=== PATIENT | female | born 1975 | race Caucasian/White ===

== ENCOUNTER → 2020-05-14 12:16 | Outpatient (CLI) | payer OTHER, SELFPAY ==
[2020-05-14 14:18] LABS: Alanine Aminotransferase 54 IU/L (<35); Albumin 4.3 g/dL (3.5-5.0); Albumin Globulin Ratio 1.3 (1.0-2.8); Alkaline Phosphatase 109 U/L (38-126); Aspartate Aminotransferase 47 IU/L (14-36); BUN Creatinine Ratio 7.8 (6-22); Bilirubin Total 0.4 mg/dL (0.2-1.3); Blood Urea Nitrogen 4 mg/dL (7-17); Carbon Dioxide 30 mmol/L (22-32); Chloride 95 mmol/L (98-107); Estimated Glomerular Filt Rate > 60.0 mL/min (>60); Globulin 3.2 g/dL (1.7-4.1); Glucose 166 mg/dL (70-100); HEMOLYSIS < 15 (0-50); Potassium 3.5 mmol/L (3.4-5.1); Sodium 133 mmol/L (137-145); Total Protein 7.5 g/dL (6.3-8.2)
[2020-05-14 14:23] LABS: Hemoglobin A1C% w Est Avg Glu 6.8 % (4.0-6.0)
[2020-05-14 15:01] LABS: TSH w/ Reflex to FT4 2.02 uIU/mL (0.47-4.68)
== END ==
PROVIDERS: Referring Provider Internal Medicine; Visit Provider Internal Medicine
DX: E10.9 Type 1 diabetes mellitus without complications (principal); E06.3 Autoimmune thyroiditis
CPT/HCPCS: 36415; 80053; 83036; 84443

== ENCOUNTER → 2020-10-14 12:41 | Outpatient (CLI) | payer OTHER, SELFPAY ==
[2020-10-14 13:06] LABS: Hemoglobin A1C% w Est Avg Glu 6.6 % (4.0-6.0)
== END ==
PROVIDERS: Referring Provider Internal Medicine; Visit Provider Internal Medicine
DX: E10.9 Type 1 diabetes mellitus without complications (principal)
CPT/HCPCS: 36415; 83036

== ENCOUNTER → 2021-01-28 13:42 | Outpatient (CLI) | payer OTHER, SELFPAY ==
[2021-01-28 15:41] LABS: Alanine Aminotransferase 28 IU/L (<35); Albumin 3.9 g/dL (3.5-5.0); Albumin Globulin Ratio 1.3 (1.0-2.8); Alkaline Phosphatase 93 U/L (38-126); Aspartate Aminotransferase 35 IU/L (14-36); BUN Creatinine Ratio 8.3 (6-22); Bilirubin Total 0.4 mg/dL (0.2-1.3); Blood Urea Nitrogen 6 mg/dL (7-17); Calcium 8.7 mg/dL (8.4-10.2); Carbon Dioxide 24 mmol/L (22-32); Chloride 94 mmol/L (98-107); Cholesterol 164 mg/dL (140-199); Estimated Glomerular Filt Rate > 60.0 mL/min (>60); Glucose 223 mg/dL (70-100); HDL Cholesterol 45 mg/dL (40-60); HEMOLYSIS < 15 (0-50); LDL Cholesterol Calculated 64 mg/dL (<100); Sodium 127 mmol/L (137-145); Total Protein 6.9 g/dL (6.3-8.2); Triglycerides 273 mg/dL (35-150)
[2021-01-28 15:46] LABS: Hemoglobin A1C% w Est Avg Glu 6.5 % (4.0-6.0)
[2021-01-28 16:35] LABS: Creatinine Urine Random 90.5 mg/dL
[2021-01-28 16:39] LABS: Microalbumin Urine Random < 0.6 mg/dL (0-1.6)
== END ==
PROVIDERS: Referring Provider Internal Medicine; Visit Provider Internal Medicine
DX: E10.9 Type 1 diabetes mellitus without complications (principal)
CPT/HCPCS: 36415; 80053; 80061; 82043; 82570; 83036

== ENCOUNTER → 2021-12-18 11:01 | Outpatient (CLI) | payer OTHER, SELFPAY ==
[2021-12-18 12:38] LABS: Cholesterol 169 mg/dL (140-199); HDL Cholesterol 53 mg/dL (40-60); LDL Cholesterol Calculated 89 mg/dL (<100); Triglycerides 133 mg/dL (35-150)
[2021-12-18 12:43] LABS: Hemoglobin A1C% w Est Avg Glu 6.8 % (4.0-6.0)
== END ==
PROVIDERS: PCP Student in an Organized Health Care Education/Training Program; Referring Provider Internal Medicine; Visit Provider Internal Medicine
DX: E10.9 Type 1 diabetes mellitus without complications (principal); E78.00 Pure hypercholesterolemia, unspecified
CPT/HCPCS: 36415; 80061; 83036

== ENCOUNTER → 2023-11-04 12:17 | Outpatient (CLI) | payer BC, OTHER, SELFPAY ==
--- NOTE | 2023-11-04 12:26 | DI.RAD.S_ITS ---
PROCEDURE: XR CHEST 2V INDICATIONS: ACUTE COUGH TECHNIQUE: 2 views of the chest were acquired. COMPARISON: None. FINDINGS: Surgical changes and devices: None. Lungs and pleura: Lungs are clear. No pleural effusions or pneumothorax. Mediastinum: Mediastinal contours are normal. Heart size is normal. Bones and chest wall: No suspicious bony abnormalities. Soft tissues appear unremarkable. IMPRESSION: No acute cardiopulmonary abnormality is seen. Dictated by: Dennise Mcgee M.D. on 11/04/2023 at 14:14 Approved by: Dennise Mcgee M.D. on 11/04/2023 at 14:15
== END ==
LOC: RAD 12:24
PROVIDERS: PCP Registered Nurse; Referring Provider Registered Nurse; Visit Provider Registered Nurse
DX: R05.1 Acute cough (principal)
CPT/HCPCS: 71046

== ENCOUNTER 2024-04-06 13:52 | Emergency (ER) | payer BC, OTHER, SELFPAY ==
[2024-04-06 14:05] VITALS: BP 115/77; PULSE 93; RESP 20; TEMP 36.7; O2SAT 97; BMI 27.8
--- NOTE | 2024-04-06 14:17 | ED.WOUNDLAC ---
HPI - Wound/Laceration <Ryanne House PA-C - Last Filed: 04/06/24 14:23> General Chief Complaint: Wound/Laceration Stated Complaint: Hand Laceration Time Seen by Provider: 04/06/24 14:04 Source: patient Mode of arrival: Ambulatory History of Present Illness HPI narrative: Patient is a pleasant 48-year-old female presents to the emergency room department with a small 1 cm avulsion laceration on the dorsal aspect of her right hand that she sustained while washing a knife at home. No other physical complaints. Last tetanus within the last 10 years. Thought she might need a couple of stitches so presented to the emergency room department for evaluation. Related Data Home Medications Medication Instructions Recorded Confirmed INSULIN GLARGINE 10ML (LANTUS) 25 units SQ Q DAY ##0 06/18/10 Insulin Human Regular (Humulin R / ##0 06/18/10 Novolin R) LISINOPRIL (Zestril / Prinivil) 10 mg PO Q DAY ##0 06/18/10 Review of Systems <Ryanne House PA-C - Last Filed: 04/06/24 14:23> Review of Systems Narrative: Negative except as above Integumentary/Breasts Comments: Small 1 cm avulsion laceration on the dorsal aspect of the right hand at the base of the 2nd phalanx. Patient History <Ryanne House PA-C - Last Filed: 04/06/24 14:23> Social History Smoking Status: Never smoker Smoking Status: Never smoker alcohol intake frequency: 0-2 drinks per day Alcohol type: wine Substance Use Type: does not use Exam <Ryanne House PA-C - Last Filed: 04/06/24 14:23> Initial Vital Signs Initial Vital Signs: Vital Signs Temperature 98.1 F 04/06/24 14:05 Pulse Rate 93 H 04/06/24 14:05 Respiratory Rate 20 04/06/24 14:05 Blood Pressure 115/77 04/06/24 14:05 Pulse Oximetry 97 04/06/24 14:05 Oxygen Delivery Method Room Air 04/06/24 14:05 Reviewed. Const Other: Alert oriented no acute distress. Eyes Other: Pupils are PERRLA, EOMs are intact patient wears glasses Skin Other: Patient has a 1 cm avulsion laceration, the skin still attached by a small portion. Currently not bleeding. Neuro Other: Cranial nerves are grossly intact. Extrem Other: Right upper extremity range of motion, strength, pulses, cap refill preserved in the right upper extremity. 1 cm avulsion laceration at the base of the 2nd phalanx of the right hand on the dorsal aspect. <DO Gregory Stratton Last Filed: 04/16/24 07:04> Initial Vital Signs Initial Vital Signs: Vital Signs Temperature 98.1 F 04/06/24 14:05 Pulse Rate 93 H 04/06/24 14:05 Respiratory Rate 20 04/06/24 14:05 Blood Pressure 115/77 04/06/24 14:05 Pulse Oximetry 97 04/06/24 14:05 Oxygen Delivery Method Room Air 04/06/24 14:05 Course <Ryanne House PA-C - Last Filed: 04/06/24 14:23> Vital Signs Vital signs: Vital Signs - 8 hr 04/06/24 14:05 Temperature 98.1 F Pulse Rate 93 H Respiratory Rate 20 Blood Pressure 115/77 Pulse Oximetry 97 Oxygen Delivery Method Room Air Reviewed <DO Gregory Stratton Last Filed: 04/16/24 07:04> Vital Signs Vital signs: Vital Signs - 8 hr 04/06/24 14:05 Temperature 98.1 F Pulse Rate 93 H Respiratory Rate 20 Blood Pressure 115/77 Pulse Oximetry 97 Oxygen Delivery Method Room Air MDM - Wound/Laceration <Ryanne House PA-C - Last Filed: 04/06/24 14:23> MDM Narrative Medical decision making narrative: 48 year female presents to the emergency department for concerns of possible need for stitches. Patient has a superficial 1 cm avulsion laceration to the dorsal aspect of the right hand at the base of the 2nd phalanx. Evaluation shows that the portion of skin is just barely hanging on. The patient does not want the skin removed. She would like to use it as a cover. The wound is currently not bleeding. She would already washed the wound prior to being seen here in the emergency department. Small piece of Xeroform gauze was placed over the wound, Telfa was applied over the Xeroform gauze. It is secured with Coban. Patient tolerated the dressing without any issues or problems Patient discharged. Currently at this time there is nothing to stitch shut. Patient advised that unfortunately the wound will continue to ooze and bleed slowly. Differential diagnosis avulsion laceration 1 cm, superficial. Discharge Plan Departure Patient Disposition: Home Clinical Impression: Avulsion of skin Activity Restrictions/Additional Instructions: Keep the area clean and dry, change the dressing daily. Unfortunately that little flap of skin that has not salvageable just going to own. Unfortunately with an avulsion like this is just going to kind of constantly bleed, due to the fact that the hand is very vascular. Apply the dressing as I have shown you. Make sure you lemon picker some Telfa, and some vet wrap. Prescriptions: No Action INSULIN GLARGINE 10ML (LANTUS) 25 units SQ Q DAY Qty: 0 Insulin Human Regular (Humulin R / Novolin R) Qty: 0 LISINOPRIL (Zestril / Prinivil) 10 mg PO Q DAY Qty: 0 Referrals: Talia Marley ARNP [Primary Care Provider] - Stand Alone Forms: Patient Portal/API ED Sign-out <Thelma Howard DO - Last Filed: 04/16/24 07:04> Cosign ED Attending [place] Attestation: I was immediately available in the department for consultation.
== END 2024-04-06 14:31 | disposition home or self-care (01) ==
PROVIDERS: Emergency Provider Physician Assistant; PCP Registered Nurse
DX: S61.411A Laceration without foreign body of right hand, initial encounter (principal); W26.0XXA Contact with knife, initial encounter
CPT/HCPCS: 99281

== ENCOUNTER 2025-06-12 20:11 | Inpatient (IN) | payer BC, OTHER, SELFPAY ==
[2025-06-12] VITALS (13 sets, daily range): BP systolic 121–172; BP diastolic 63–77; PULSE 102–125; RESP 14–22; TEMP 37.1; O2SAT 96–99; BMI 28.5
[2025-06-12] MEDS: ONDANSETRON 4 MG/2 ML INJ IV ×2 (20:44→23:03)
[2025-06-12] MEDS: SODIUM CHLORIDE 0.9% 1,000 ML 1000 ML IV (20:45)
[2025-06-12 20:54] LABS: Add Manual Diff / Slide Review NO; Hematocrit 45.2 % (36-46); Hemoglobin 15.0 g/dL (12.0-16.0); Lymphocytes Absolute Auto 600 /uL (1100-4500); Mean Corpuscular HGB Conc 33.2 % (30-36); Mean Corpuscular Hemoglobin 28.8 PG (26-34); Mean Corpuscular Volume 86.7 fL (80-100); Platelet Count 296 X10^3/uL (150-400)
--- NOTE | 2025-06-12 20:54 | ED_ITS ---
HPI - General Adult General Chief complaint: Diabetic Problem Stated complaint: diabetic problem Time Seen by Provider: 06/12/25 20:45 Source: patient Mode of arrival: Ambulatory History of Present Illness HPI narrative: This is a 49-year-old female type 1 diabetic who comes in with vomiting all day. Reports she had been vomiting about 8 hours. Her blood sugars have been high over 400 all day in spite of having her insulin pump on and running. She denies abdominal pain, no urinary symptoms no cough no chest pain. Related Data Home Medications ?Medication ?Instructions ?Recorded ?Confirmed INSULIN GLARGINE 10ML (LANTUS) 25 units SQ Q DAY ##0 1 08/19/09 Insulin Human Regular (Humulin R / ##0 06/18/10 Novolin R) LISINOPRIL (Zestril / Prinivil) 10 mg PO Q DAY ##0 07/28 Allergies Allergy/AdvReac Type Severity Reaction Status Date / Time gluten Allergy Severe Vomiting Verified 06/12/25 20:36 Sulfa (Sulfonamide Allergy Mild Swelling Verified 06/12/25 20:20 Antibiotics) of the Eye Egg Derived Allergy Diarrhea Verified 06/12/25 20:36 fish derived Allergy Hives Verified 06/12/25 20:36 peanut Allergy Anaphylaxis Verified 06/12/25 20:36 sesame seed Allergy Anaphylaxis Verified 06/12/25 20:36 shellfish derived Allergy Hives Verified 06/12/25 20:36 tree nut Allergy Anaphylaxis Verified 06/12/25 20:36 Patient History Smoking Status: Never smoker alcohol intake frequency: 0-2 drinks per day Alcohol type: wine Exam Narrative Exam Narrative: Alert, appears uncomfortable but not toxic tachycardia noted Oral mucosa is moist Neck is supple Lungs are clear Regular rhythm and rate no murmur rub or gallop she is tachycardic Abdomen normal bowel sounds soft mild right upper quadrant tenderness Moving all 4 extremities spontaneously and equally Initial Vital Signs Initial Vital Signs: Vital Signs Temperature 98.8 F 06/12/25 20:20 Pulse Rate 125 H 06/12/25 20:20 Respiratory Rate 18 06/12/25 20:20 Blood Pressure 142/77 H 06/12/25 20:20 Pulse Oximetry 98 06/12/25 20:20 Oxygen Delivery Method Room Air 06/12/25 20:20 Course Orders Ordered: ED Orders 06/12/25 20:30 EKG-12 Lead Stat VBG [Venous Blood Gas] STAT 06/12/25 20:45 Complete Blood Count AUTO DIFF Stat Comprehensive Metabolic Panel Stat Ketones (Beta-Hydroxybutyrate) Stat Lipase Stat 06/12/25 20:52 Venous Blood Gas Routine 06/12/25 20:57 US abdomen limited Stat 06/12/25 22:00 Urine Culture Stat Urine Microscopic Stat 06/12/25 22:50 Arterial Blood Gas ROUTINE 06/12/25 22:55 Consult to Dietitian, Adult Routine 06/12/25 22:56 Basic Metabolic Panel Q4H 06/13/25 05:00 Complete Blood Count AUTO DIFF DAILY Lactate (Lactic Acid) DAILY Magnesium DAILY Troponin I DAILY Acetaminophen (Acetaminophen 325 Mg Tablet) 650 mg PO Q6H PRN PRN Reason: Fever/Mild Pain (1-3) Diazepam (Diazepam 10 Mg/2 Ml Syringe) 2 mg IV Q4HR PRN PRN Reason: Anxiety Hydromorphone HCl (Hydromorphone Hcl 0.5 Mg/0.5 Ml Syringe) 0.5 mg IV Q2H PRN PRN Reason: Pain, Severe (7-10) INSULIN DRIP PREMIX (Myxredlin Drip Premix) 100 unit in 100 mls @ 9.525 mls/hr IV TITRATE REYNA Last Admin: 06/12/25 21:44 Dose: 0.1 unit/kg/hr, 9.525 mls/hr INSULIN DRIP PREMIX (Myxredlin Drip Premix) 100 unit in 100 mls @ 4.763 mls/hr IV TITRATE REYNA; Protocol Dextrose (D10w) 100 mls @ 999 mls/hr IV PRN PRN PRN Reason: Hypoglycemia Sodium Chloride (Normal Saline 0.9%) 1,000 mls @ 999 mls/hr IV BOLUS ONE Stop: 06/12/25 23:56 Dextrose/Sodium Chloride (Dextrose 5%-0.45% Ns) 1,000 mls @ 150 mls/hr IV CONT REYNA Metoclopramide HCl (Metoclopramide 10 Mg/2 Ml Inj) 5 mg IV Q6HR PRN PRN Reason: Nausea And Vomiting Morphine Sulfate (Morphine 2 Mg/Ml Inj) 2 mg IV Q2HR PRN PRN Reason: Pain, Moderate (4-6) Naloxone HCl (Naloxone 0.4 Mg/Ml Vial) 0.2 mg IV Q2MIN PRN PRN Reason: Opiate Reversal Ondansetron HCl (Ondansetron 4 Mg/2 Ml Inj) 4 mg IV NOW PRN PRN Reason: Nausea And Vomiting Last Admin: 06/12/25 20:44 Dose: 4 mg Documented By: LUCILLE Ondansetron HCl (Ondansetron 4 Mg Odt) 4 mg PO NOW PRN PRN Reason: Nausea And Vomiting Ondansetron HCl (Ondansetron 4 Mg/2 Ml Inj) 4 mg IV Q6HR PRN PRN Reason: Nausea And Vomiting Oxycodone HCl (Oxycodone Ir 5 Mg Tablet) 5 mg PO Q3H PRN PRN Reason: Pain, Moderate (4-6) Pantoprazole Sodium (Pantoprazole 40 Mg Vial) 40 mg IV DAILY REYNA Discontinued Medications Sodium Chloride (Normal Saline 0.9%) 1,000 mls @ 1,000 mls/hr IV BOLUS ONE Stop: 06/12/25 21:41 Last Admin: 06/12/25 20:45 Dose: 1,000 mls/hr Documented By: LUCILLE Sodium Chloride (Normal Saline 0.9%) 1,000 mls @ 1,000 mls/hr IV BOLUS ONE Stop: 06/12/25 22:46 Reevaluation(s) Reevaluation #1: Blood sugars are coming down, at 10:50 p.m. we will add D5W to the IV fluids and decrease insulin to 0.5 units/kilogram per hour Consultations Consultation #1: Case discussed with hospitalist, Dr. Ham who accepts the admission Vital Signs Vital signs: Vital Signs - 8 hr 06/12/25 20:20 06/12/25 21:02 06/12/25 21:29 Temperature 98.8 F Pulse Rate 125 H 115 H 109 H Respiratory Rate 18 16 Blood Pressure 142/77 H Pulse Oximetry 98 97 99 Oxygen Delivery Method Room Air 06/12/25 21:29 06/12/25 21:30 06/12/25 21:30 Temperature Pulse Rate 109 H Respiratory Rate 18 Blood Pressure 135/65 128/63 Pulse Oximetry 99 Oxygen Delivery Method 06/12/25 21:45 06/12/25 21:45 06/12/25 22:00 Temperature Pulse Rate 108 H 110 H Respiratory Rate 20 17 Blood Pressure 129/66 Pulse Oximetry 98 99 Oxygen Delivery Method 06/12/25 22:00 06/12/25 22:15 06/12/25 22:15 Temperature Pulse Rate 108 H Respiratory Rate 20 Blood Pressure 172/77 H 146/72 H Pulse Oximetry 99 Oxygen Delivery Method 06/12/25 22:30 06/12/25 22:30 Temperature Pulse Rate 106 H Respiratory Rate 17 Blood Pressure 132/68 Pulse Oximetry 98 Oxygen Delivery Method Medical Decision Making Lab Data Lab results narrative: Venous blood gas shows acidosis and a low bicarb consistent with an acute metabolic acidosis. On chemistries glucose is nearly 400 with a CO2 of 12 and a positive anion gap. Potassium was noted to be 4.5. Serum ketones are positive. Urine micro showed no evidence of infection.. 06/12/25 20:45 06/12/25 20:45 Labs: Lab Results 06/12/25 06/12/25 06/12/25 Range/Units 20:30 20:45 20:52 WBC 10.9 (4.5-11.0) X10^3/uL RBC 5.21 H (4.0-5.2) X10^6/uL Hgb 15.0 (12.0-16.0) g/dL Hct 45.2 (36-46) % MCV 86.7 (80-100) fL MCH 28.8 (26-34) PG MCHC 33.2 (30-36) % RDW 13.1 (11.6-14.8) % Plt Count 296 (150-400) X10^3/uL Neut % (Auto) 92.0 H (50-75) % Lymph % (Auto) 5.2 L (25-40) % Carroll % (Auto) 2.4 L (3-14) % Eos % (Auto) 0.0 L (2-4) % Baso % (Auto) 0.4 (0-2) % Neut # (Auto) 19756 H (9184-6005) /uL Lymph # (Auto) 600 L (7373-3113) /uL Carroll # (Auto) 300 (0-900) /uL Eos # (Auto) 0 (0-450) /uL Baso # (Auto) 0 (0-100) /uL VBG pH 7.28 L (7.33-7.43) VBG pCO2 32.6 L (45-50) mmHg VBG pO2 41 (35-45) mmHg VBG HCO3 15 L (24-28) mmol/L VBG Total CO2 15 L (24-29) mmol/L VBG O2 Saturation 70 (70-75) % VBG Base Excess -10.2 L (0-4) mmol/L Sodium 132 L (137-145) mmol/L Potassium 4.5 (3.4-5.1) mmol/L Chloride 95 L (98-107) mmol/L Carbon Dioxide 12 L (22-32) mmol/L BUN 16 (7-17) mg/dL Creatinine 0.85 (0.52-1.04) mg/dL Estimated GFR > 60 (>60) mL/min BUN/Creatinine Ratio 18.8 (6-22) Glucose 393 H (70-99) mg/dL POC Whole Bld Glucose 432 H (70-99) mg/dL Calcium 9.0 (8.4-10.2) mg/dL Total Bilirubin 1.1 (0.2-1.3) mg/dL AST 40 H (14-36) IU/L ALT 41 H (<35) IU/L Alkaline Phosphatase 105 (38-126) U/L Total Protein 8.0 (6.3-8.2) g/dL Albumin 4.9 (3.5-5.0) g/dL Globulin 3.1 (1.7-4.1) g/dL Albumin/Globulin Ratio 1.6 (1.0-2.8) Lipase 27 (23-300) U/L Urine RBC (0-5/HPF) Urine WBC (0-5/HPF) Ur Squamous Epith Cells (0-5/HPF) Urine Bacteria (None) Hyaline Casts (None) Ur Culture Indicated? Vol Urine Centrifuged Ketones 6.58 H (<0.27) mmol/L 06/12/25 06/12/25 06/12/25 Range/Units 21:43 22:00 22:37 WBC (4.5-11.0) X10^3/uL RBC (4.0-5.2) X10^6/uL Hgb (12.0-16.0) g/dL Hct (36-46) % MCV (80-100) fL MCH (26-34) PG MCHC (30-36) % RDW (11.6-14.8) % Plt Count (150-400) X10^3/uL Neut % (Auto) (50-75) % Lymph % (Auto) (25-40) % Carroll % (Auto) (3-14) % Eos % (Auto) (2-4) % Baso % (Auto) (0-2) % Neut # (Auto) (8331-6857) /uL Lymph # (Auto) (2245-3616) /uL Carroll # (Auto) (0-900) /uL Eos # (Auto) (0-450) /uL Baso # (Auto) (0-100) /uL VBG pH (7.33-7.43) VBG pCO2 (45-50) mmHg VBG pO2 (35-45) mmHg VBG HCO3 (24-28) mmol/L VBG Total CO2 (24-29) mmol/L VBG O2 Saturation (70-75) % VBG Base Excess (0-4) mmol/L Sodium (137-145) mmol/L Potassium (3.4-5.1) mmol/L Chloride (98-107) mmol/L Carbon Dioxide (22-32) mmol/L BUN (7-17) mg/dL Creatinine (0.52-1.04) mg/dL Estimated GFR (>60) mL/min BUN/Creatinine Ratio (6-22) Glucose (70-99) mg/dL POC Whole Bld Glucose 344 H 244 H D (70-99) mg/dL Calcium (8.4-10.2) mg/dL Total Bilirubin (0.2-1.3) mg/dL AST (14-36) IU/L ALT (<35) IU/L Alkaline Phosphatase (38-126) U/L Total Protein (6.3-8.2) g/dL Albumin (3.5-5.0) g/dL Globulin (1.7-4.1) g/dL Albumin/Globulin Ratio (1.0-2.8) Lipase (23-300) U/L Urine RBC None seen (0-5/HPF) Urine WBC None seen (0-5/HPF) Ur Squamous Epith Cells 5-10 /hpf H (0-5/HPF) Urine Bacteria Moderate (10-30) H (None) Hyaline Casts 0-1/lpf (None) Ur Culture Indicated? Cult not indicated Vol Urine Centrifuged 10ml (spun) Ketones (<0.27) mmol/L Point of Care Testing Glucose POC 432 Urine Dip Bedside Urine Glucose 1000 mg/dl Bedside Urine Bilirubin - Negative Bedside Urine Ketone +++ 80 Urine Specific [place] 1.025 Bedside Urine Occult Blood - Negative Bedside Urine pH 6.0 Bedside Urine Protein - Negative Bedside Urine Urobilinogen - Negative Bedside Urine Nitrite - Negative Bedside Urine Leukocytes - Negative Esterase Point of care testing: Point of Care Testing Glucose POC 432 Urine Dip Bedside Urine Glucose 1000 mg/dl Bedside Urine Bilirubin - Negative Bedside Urine Ketone +++ 80 Urine Specific [place] 1.025 Bedside Urine Occult Blood - Negative Bedside Urine pH 6.0 Bedside Urine Protein - Negative Bedside Urine Urobilinogen - Negative Bedside Urine Nitrite - Negative Bedside Urine Leukocytes - Negative Esterase Imaging Data US - abdomen: Radiologist's Impression: Initial report from fish technologist right upper quadrant ultrasound is negative ECG Data Attestation: I personally reviewed and interpreted this ECG as follows: (Normal sinus rhythm at 1:[address] segment changes) [facility] Narrative Medical decision making narrative: 49-year-old female type 1 diabetic presenting with high blood sugars and vomiting. Presentation is consistent with an labs are confirmatory for diabetic ketoacidosis. Considered possible precipitated causes including infection and cardiac ischemia these are not identified. The patient has a insulin pump on that she reports she has been functioning normally. She was started on insulin drip given IV fluids here with improvement in blood sugars, she will be admitted to the hospitalist service. Critical Care Time Critical Care Time Critical Care Time: Yes Total Critical Care Time: 40 Attestation: 49-year-old female with acute diabetic ketoacidosis. Required multiple reassessments, repeat labs and female with the IV insulin drip Discharge Plan Departure Patient Disposition: Admitted As Inpatient Clinical Impression: Diabetes mellitus with ketoacidosis Qualifiers: Diabetes mellitus type: type 1 Diabetes mellitus complication detail: without coma Qualified Code(s): E10.10 - Type 1 diabetes mellitus with ketoacidosis without coma Admit Date/Time: 06/12/25 22:50 Admit Provider: Mariano Ham
[2025-06-12 20:56] LABS: Base Excess VBG -10.2 mmol/L (0-4); HCO3 VBG 15 mmol/L (24-28); Oxygen Saturation VBG 70 % (70-75); PCO2 VBG 32.6 mmHg (45-50); PO2 VBG 41 mmHg (35-45); Total CO2 VBG 15 mmol/L (24-29); pH VBG 7.28 (7.33-7.43)
--- NOTE | 2025-06-12 20:57 | DI.US.S_ITS ---
PROCEDURE: US ABDOMEN LIMITED INDICATIONS: ruq abd tenderness TECHNIQUE: Real-time scanning was performed of the abdominal and retroperitoneal organs, with image documentation. COMPARISON: None. FINDINGS: Liver: Liver is normal in size and homogeneous in echotexture. Gallbladder: No gallstones. No wall thickening. No pericholecystic edema. Negative sonographic Baum's sign. Biliary ducts: Intrahepatic bile ducts are non-dilated. Extrahepatic bile duct caliber measures 1.2 mm. Normal is 6-7 mm or less in diameter, or 10 mm or less post-cholecystectomy. Pancreas: Visualized portions of the pancreas are sonographically normal. Miscellaneous: No free abdominal fluid. IMPRESSION: Unremarkable exam. Dictated by: Nikki Oviedo M.D. on 06/12/2025 at 23:18 Approved by: Nikki Oviedo M.D. on 06/12/2025 at 23:19
[2025-06-12 21:05] LABS: Alanine Aminotransferase 41 IU/L (<35); Albumin 4.9 g/dL (3.5-5.0); Albumin Globulin Ratio 1.6 (1.0-2.8); Alkaline Phosphatase 105 U/L (38-126); Blood Urea Nitrogen 16 mg/dL (7-17); Calcium 9.0 mg/dL (8.4-10.2); Carbon Dioxide 12 mmol/L (22-32); Chloride 95 mmol/L (98-107); Estimated Glomerular Filt Rate > 60 mL/min (>60); Globulin 3.1 g/dL (1.7-4.1); Glucose 393 mg/dL (70-99); HEMOLYSIS < 15 (0-50); Lipase 27 U/L (23-300); Potassium 4.5 mmol/L (3.4-5.1); Sodium 132 mmol/L (137-145); Total Protein 8.0 g/dL (6.3-8.2)
--- NOTE | 2025-06-12 21:05 | EKG_ITS ---
[address] [address] Test Date: 2025-06-12 Pat Name: Isadora Gordon Department: [facility] Room: Gender: Female Corporate Tax Preparer: IRAIDA : 1975 Requested By: Order Number: [id number] Reading MD: Michale Lopez Measurements Intervals Council Rate: 113 P: 44 VT: 140 QRS: -9 QRSD: 84 T: 29 QT: 326 QTc: 447 Interpretive Statements Sinus tachycardia Electronically Signed On 06-13-2025 14:10:03 PST by Michael Lopez
[2025-06-12 21:28] LABS: Ketones (Beta-Hydroxybutyrate) 6.58 mmol/L (<0.27)
[2025-06-12] MEDS: INSULIN DRIP PREMIX 100 UNIT/100 ML PLAST..BAG 9.525 UNIT IV (21:44)
--- NOTE | 2025-06-12 22:44 | PC.NURSE ---
Per verbal from Dr. Lucia, change insulin drip rate to 0.05Units/kg/hr and switch NS to D5 1/2NS @150mL/hr
[2025-06-12 22:49] LABS: Culture Indicated Urine Cult Not Indicated
[2025-06-12] MEDS: INSULIN DRIP PREMIX 100 UNIT/100 ML PLAST..BAG IV (22:59)
[2025-06-12] MEDS: DEXTROSE 5%-0.45% NS 1,000 ML 150 ML IV (23:01)
[2025-06-12 23:15] LABS: Blood Urea Nitrogen 15 mg/dL (7-17); Calcium 8.4 mg/dL (8.4-10.2); Carbon Dioxide 16 mmol/L (22-32); Chloride 99 mmol/L (98-107); Estimated Glomerular Filt Rate > 60 mL/min (>60); Glucose 228 mg/dL (70-99); HEMOLYSIS < 15 (0-50); Potassium 4.0 mmol/L (3.4-5.1); Sodium 132 mmol/L (137-145)
[2025-06-13] VITALS (8 sets, daily range): BP systolic 118–147; BP diastolic 58–75; PULSE 84–100; RESP 13–27; O2SAT 96–98
--- NOTE | 2025-06-13 00:50 | PM.HP.1 ---
History of Present Illness History of Present Illness Date Patient Seen: 06/13/25 Time Patient Seen: 00:50 Chief complaint: diabetic problem Narrative: The pt is a IDDM type I who normally has a Medtronic Insulin pump who started having nausea for the past 48 hours but started having vomiting around noon today multiple times. She was unable to keep any food or liquids down so she came t our ER tonight. The pt's primary chief mate is Dr. Horne at [facility] and had an appointment last week for a routine check. Thept does not know why she has went into DKA, but states her son also has been having N/V for the past several days- thus she thinks she has a viral GI bug. The pt denies any CP, AYALA, fevers, chills, but does c/o leg cramps. [facility] Social History household members: spouse and children Smoking Status: Former smoker alcohol intake: current Meds Home Medications and Allergies Home Medications ?Medication ?Instructions ?Recorded ?Confirmed ?Type INSULIN GLARGINE 10ML (LANTUS) 25 units SQ Q DAY ##0 06/18/10 History Insulin Human Regular (Humulin R / ##0 06/18/10 History Novolin R) LISINOPRIL (Zestril / Prinivil) 10 mg PO Q DAY ##0 06/18/10 History Allergies Allergy/AdvReac Type Severity Reaction Status Date / Time gluten Allergy Severe Vomiting Verified 06/12/25 20:36 Sulfa (Sulfonamide Allergy Mild Swelling Verified 06/12/25 20:20 Antibiotics) of the Eye Egg Derived Allergy Diarrhea Verified 06/12/25 20:36 fish derived Allergy Hives Verified 06/12/25 20:36 peanut Allergy Anaphylaxis Verified 06/12/25 20:36 sesame seed Allergy Anaphylaxis Verified 06/12/25 20:36 shellfish derived Allergy Hives Verified 06/12/25 20:36 tree nut Allergy Anaphylaxis Verified 06/12/25 20:36 Exam Vital Signs (past 8 hours): - 06/12/25 20:20 06/12/25 21:02 06/12/25 21:29 Temperature 98.8 F Pulse Rate 125 H 115 H 109 H Respiratory Rate 18 16 Blood Pressure 142/77 H Pulse Oximetry 98 97 99 Oxygen Delivery Method Room Air 06/12/25 21:29 06/12/25 21:30 06/12/25 21:30 Temperature Pulse Rate 109 H Respiratory Rate 18 Blood Pressure 135/65 128/63 Pulse Oximetry 99 Oxygen Delivery Method 06/12/25 21:45 06/12/25 21:45 06/12/25 22:00 Temperature Pulse Rate 108 H 110 H Respiratory Rate 20 17 Blood Pressure 129/66 Pulse Oximetry 98 99 Oxygen Delivery Method 06/12/25 22:00 06/12/25 22:15 06/12/25 22:15 Temperature Pulse Rate 108 H Respiratory Rate 20 Blood Pressure 172/77 H 146/72 H Pulse Oximetry 99 Oxygen Delivery Method 06/12/25 22:30 06/12/25 22:30 06/12/25 22:45 Temperature Pulse Rate 106 H Respiratory Rate 17 Blood Pressure 132/68 136/67 Pulse Oximetry 98 Oxygen Delivery Method 06/12/25 22:45 06/12/25 23:00 06/12/25 23:00 Temperature Pulse Rate 105 H 106 H Respiratory Rate 14 20 Blood Pressure 130/69 Pulse Oximetry 97 97 Oxygen Delivery Method 06/12/25 23:15 06/12/25 23:15 06/12/25 23:25 Temperature Pulse Rate 102 H Respiratory Rate 14 Blood Pressure 121/68 127/70 Pulse Oximetry 96 Oxygen Delivery Method 06/12/25 23:25 06/12/25 23:30 Temperature Pulse Rate 103 H 108 H Respiratory Rate 22 Blood Pressure Pulse Oximetry 98 97 Oxygen Delivery Method Oxygen Delivery Method Room Air Const General: cooperative, healthy appearing and comfortable Other: Due to technical issues, I was not able to examine the pt today but was able to visualize the pt and talk to her. Objective Labs 06/12/25 20:45 06/12/25 22:56 Labs: Laboratory Results - last 24 hr 06/12/25 06/12/25 06/12/25 20:30 20:45 20:52 WBC 10.9 RBC 5.21 H Hgb 15.0 Hct 45.2 MCV 86.7 MCH 28.8 MCHC 33.2 RDW 13.1 Plt Count 296 Neut % (Auto) 92.0 H Lymph % (Auto) 5.2 L [place] % (Auto) 2.4 L Eos % (Auto) 0.0 L Baso % (Auto) 0.4 Neut # (Auto) 28960 H Lymph # (Auto) 600 L [place] # (Auto) 300 Eos # (Auto) 0 Baso # (Auto) 0 VBG pH 7.28 L VBG pCO2 32.6 L VBG pO2 41 VBG HCO3 15 L VBG Total CO2 15 L VBG O2 Saturation 70 VBG Base Excess -10.2 L Sodium 132 L Potassium 4.5 Chloride 95 L Carbon Dioxide 12 L BUN 16 Creatinine 0.85 Estimated GFR > 60 BUN/Creatinine Ratio 18.8 Glucose 393 H POC Whole Bld Glucose 432 H Calcium 9.0 Total Bilirubin 1.1 AST 40 H ALT 41 H Alkaline Phosphatase 105 Total Protein 8.0 Albumin 4.9 Globulin 3.1 Albumin/Globulin Ratio 1.6 Lipase 27 Urine RBC Urine WBC Ur Squamous Epith Cells Urine Bacteria Hyaline Casts Ur Culture Indicated? Vol Urine Centrifuged Ketones 6.58 H 06/12/25 06/12/25 06/12/25 21:43 22:00 22:37 WBC RBC Hgb Hct MCV MCH MCHC RDW Plt Count Neut % (Auto) Lymph % (Auto) [place] % (Auto) Eos % (Auto) Baso % (Auto) Neut # (Auto) Lymph # (Auto) [place] # (Auto) Eos # (Auto) Baso # (Auto) VBG pH VBG pCO2 VBG pO2 VBG HCO3 VBG Total CO2 VBG O2 Saturation VBG Base Excess Sodium Potassium Chloride Carbon Dioxide BUN Creatinine Estimated GFR BUN/Creatinine Ratio Glucose POC Whole Bld Glucose 344 H 244 H D Calcium Total Bilirubin AST ALT Alkaline Phosphatase Total Protein Albumin Globulin Albumin/Globulin Ratio Lipase Urine RBC None seen Urine WBC None seen Ur Squamous Epith Cells 5-10 /hpf H Urine Bacteria Moderate (10-30) H Hyaline Casts 0-1/lpf Ur Culture Indicated? Cult not indicated Vol Urine Centrifuged 10ml (spun) Ketones 06/12/25 06/12/25 22:56 23:59 WBC RBC Hgb Hct MCV MCH MCHC RDW Plt Count Neut % (Auto) Lymph % (Auto) [place] % (Auto) Eos % (Auto) Baso % (Auto) Neut # (Auto) Lymph # (Auto) [place] # (Auto) Eos # (Auto) Baso # (Auto) VBG pH VBG pCO2 VBG pO2 VBG HCO3 VBG Total CO2 VBG O2 Saturation VBG Base Excess Sodium 132 L Potassium 4.0 Chloride 99 Carbon Dioxide 16 L BUN 15 Creatinine 0.72 Estimated GFR > 60 BUN/Creatinine Ratio 20.8 Glucose 228 H D POC Whole Bld Glucose 208 H Calcium 8.4 Total Bilirubin AST ALT Alkaline Phosphatase Total Protein Albumin Globulin Albumin/Globulin Ratio Lipase Urine RBC Urine WBC Ur Squamous Epith Cells Urine Bacteria Hyaline Casts Ur Culture Indicated? Vol Urine Centrifuged Ketones Assessment & Plan Assessment & Plan narrative: I have discussed the pt's presenting symtoms, labs and US imaging with the ER provider and agree with the decision for admission. I have personally reviewed the labs showing the glucose of 394, large ketones, bicarb critically low at 12, She was given 2 liter of NS in the ER, and we will continue on aggressive IV fluid rehydration, checking accuchecks Q1 Hr, electrolytes Q4 hr, rechecking ABG, The pt is cricitally ill and requires ICU monitoring on telemetry and will require more than 2 MN stay, I, Dr. Mariano Ham in [place] has seen and examined Isadora Shamajeff Campos in [place] using audio/ video technology of telemedicine withe the pt's consent nd nursing assistance. Time-Based Coding :: [TOTAL MINUTES] spent with patient and on the chart (including review of chart, obtaining history, exam, reviewing outside data, placing orders, documenting exam and treatment plan, and counseling patient) on [DATE]. Quality VTE Deep Vein Thrombosis/Pulmonary Embolism Present on Admission: No
[2025-06-13] MEDS: DEXTROSE 5%-0.45NS W/KCL 20MEQ 1,000 ML 150 MEQ IV (00:54)
[2025-06-13 02:23] LABS: MRSA (Nasal) PCR NOT DETECTED (Not Detect)
[2025-06-13 03:26] LABS: Base Excess VBG -1.3 mmol/L (0-4); HCO3 VBG 23 mmol/L (24-28); Oxygen Saturation VBG 97 % (70-75); PCO2 VBG 34.2 mmHg (45-50); PO2 VBG 92 mmHg (35-45); Total CO2 VBG 21 mmol/L (24-29); pH VBG 7.43 (7.33-7.43)
[2025-06-13 03:45] LABS: Add Manual Diff / Slide Review NO; Hematocrit 37.2 % (36-46); Hemoglobin 12.8 g/dL (12.0-16.0); Lymphocytes Absolute Auto 1300 /uL (1100-4500); Mean Corpuscular HGB Conc 34.4 % (30-36); Mean Corpuscular Hemoglobin 29.3 PG (26-34); Mean Corpuscular Volume 85.0 fL (80-100); Platelet Count 256 X10^3/uL (150-400)
[2025-06-13 04:02] LABS: Blood Urea Nitrogen 13 mg/dL (7-17); Calcium 8.2 mg/dL (8.4-10.2); Carbon Dioxide 20 mmol/L (22-32); Chloride 102 mmol/L (98-107); Estimated Glomerular Filt Rate > 60 mL/min (>60); Glucose 137 mg/dL (70-99); HEMOLYSIS < 15 (0-50); Magnesium 1.8 mg/dL (1.6-2.3); Potassium 4.0 mmol/L (3.4-5.1); Sodium 131 mmol/L (137-145)
[2025-06-13 04:04] LABS: Lactate (Lactic Acid) 1.4 mmol/L (0.7-2.1)
[2025-06-13 04:14] LABS: Troponin I 0.016 ng/mL (0.01-0.034)
--- NOTE | 2025-06-13 06:39 | PC.NURSE ---
propulsion systems engineer RN note pt arrived from ER via stretcher, ambulated to bed with standby assist, denied pain, c/o mild nausea, states she feels like she has a touch of a virus, pt's insulin pump off and at bedside, new site on R abd intact and capped, SR 80s, VSS, afebrile, IV fluids and insulin gtt per protocol, meds and labs as ordered, call hernandez within reach, care ongoing
[2025-06-13 07:50] LABS: Blood Urea Nitrogen 11 mg/dL (7-17); Calcium 8.1 mg/dL (8.4-10.2); Carbon Dioxide 20 mmol/L (22-32); Chloride 102 mmol/L (98-107); Estimated Glomerular Filt Rate > 60 mL/min (>60); Glucose 145 mg/dL (70-99); HEMOLYSIS < 15 (0-50); Potassium 4.0 mmol/L (3.4-5.1); Sodium 129 mmol/L (137-145)
--- NOTE | 2025-06-13 08:11 | P.HP_ITS ---
History of Present Illness History of Present Illness Date Patient Seen: 06/13/25 Chief complaint: diabetic problem Narrative: From night doctor: The pt is a IDDM type I who normally has a Medtronic Insulin pump who started having nausea for the past 48 hours but started having vomiting around noon today multiple times. She was unable to keep any food or liquids down so she came t our ER tonight. The pt's primary contracting officer is Dr. Horne at [facility] and had an appointment last week for a routine check. Thept does not know why she has went into DKA, but states her son also has been having N/V for the past several days- thus she thinks she has a viral GI bug. The pt denies any CP, AYALA, fevers, chills, but does c/o leg cramps. S: She was feeling much better, her nausea has essentially resolved and she was able to eat. Her sugars have improved and gap did close. She has not on DKA previously. There was no evidence pump function. She did have nausea vomiting and diarrhea blood with the as well as on infection or food poisoning. ROS: All else reviewed and otherwise unremarkable except as noted in the history and physical. O: VSS NAD, alert and oriented, fluent speech, calm. Normocephalic skull, EOMI, anicteric sclera, symmetric pupils. Oropharynx unremarkable, no droop. Neck supple, midline trachea, no adenopathy. Lungs clear, normal rate and effort. Heart regular, no murmur gallop or rub. Abdomen is soft, non distended and non tender. Extremities are free of edema. Skin is free of rash or lesions. Joints are not swollen or deformed. Judgment appears to be normal. IMAGING: ABD US: Unremarkable exam. A/P: 1. DKA, improved. 2. DM 1, active. PLAN: -transitioned back to pump -stop IV fluids [facility] Social History household members: spouse and children Smoking Status: Former smoker alcohol intake: current Meds Home Medications and Allergies Home Medications ?Medication ?Instructions ?Recorded ?Confirmed ?Type INSULIN GLARGINE 10ML (LANTUS) 25 units SQ Q DAY ##0 1 08/19/09 06/13/25 History Insulin Human Regular (Humulin R / See Rx Instructions .Route 06/18/10 06/13/25 History Novolin R) .COMPLEX ##0 LISINOPRIL (Zestril / Prinivil) 10 mg PO Q DAY ##0 07/2806/13/25 History ondansetron 4 mg disintegrating 4 mg PO Q8H PRN nausea and 06/13/25 Rx tablet vomiting 4 days #14 tabs Allergies Allergy/AdvReac Type Severity Reaction Status Date / Time gluten Allergy Severe Vomiting Verified 06/12/25 20:36 Sulfa (Sulfonamide Allergy Mild Swelling Verified 06/12/25 20:20 Antibiotics) of the Eye Egg Derived Allergy Diarrhea Verified 06/12/25 20:36 fish derived Allergy Hives Verified 06/12/25 20:36 peanut Allergy Anaphylaxis Verified 06/12/25 20:36 sesame seed Allergy Anaphylaxis Verified 06/12/25 20:36 shellfish derived Allergy Hives Verified 06/12/25 20:36 tree nut Allergy Anaphylaxis Verified 06/12/25 20:36 Exam Vital Signs (past 8 hours): - 06/13/25 01:00 06/13/25 02:00 06/13/25 03:00 Pulse Rate 97 H 94 H 88 Respiratory Rate 13 14 18 Blood Pressure 134/66 122/60 118/64 Pulse Oximetry 96 96 98 Oxygen Flow Rate 0 0 0 06/13/25 04:00 06/13/25 05:00 06/13/25 06:00 Pulse Rate 86 89 85 Respiratory Rate 17 18 27 H Blood Pressure 133/62 126/63 120/58 L Pulse Oximetry 97 96 98 Oxygen Flow Rate 0 0 0 Oxygen Delivery Method Room Air Oxygen Flow Rate 0 Objective Labs 06/13/25 03:10 06/13/25 07:25 Labs: Laboratory Results - last 24 hr 06/12/25 06/12/25 06/12/25 20:30 20:45 20:52 WBC 10.9 RBC 5.21 H Hgb 15.0 Hct 45.2 MCV 86.7 MCH 28.8 MCHC 33.2 RDW 13.1 Plt Count 296 Neut % (Auto) 92.0 H Lymph % (Auto) 5.2 L [place] % (Auto) 2.4 L Eos % (Auto) 0.0 L Baso % (Auto) 0.4 Neut # (Auto) 28352 H Lymph # (Auto) 600 L [place] # (Auto) 300 Eos # (Auto) 0 Baso # (Auto) 0 VBG pH 7.28 L VBG pCO2 32.6 L VBG pO2 41 VBG HCO3 15 L VBG Total CO2 15 L VBG O2 Saturation 70 VBG Base Excess -10.2 L Sodium 132 L Potassium 4.5 Chloride 95 L Carbon Dioxide 12 L BUN 16 Creatinine 0.85 Estimated GFR > 60 BUN/Creatinine Ratio 18.8 Glucose 393 H POC Whole Bld Glucose 432 H Lactate Calcium 9.0 Magnesium Total Bilirubin 1.1 AST 40 H ALT 41 H Alkaline Phosphatase 105 Troponin I Total Protein 8.0 Albumin 4.9 Globulin 3.1 Albumin/Globulin Ratio 1.6 Lipase 27 Urine RBC Urine WBC Ur Squamous Epith Cells Urine Bacteria Hyaline Casts Ur Culture Indicated? Vol Urine Centrifuged Nasal Screen MRSA (PCR) Ketones 6.58 H 06/12/25 06/12/25 06/12/25 21:43 22:00 22:37 WBC RBC Hgb Hct MCV MCH MCHC RDW Plt Count Neut % (Auto) Lymph % (Auto) [place] % (Auto) Eos % (Auto) Baso % (Auto) Neut # (Auto) Lymph # (Auto) [place] # (Auto) Eos # (Auto) Baso # (Auto) VBG pH VBG pCO2 VBG pO2 VBG HCO3 VBG Total CO2 VBG O2 Saturation VBG Base Excess Sodium Potassium Chloride Carbon Dioxide BUN Creatinine Estimated GFR BUN/Creatinine Ratio Glucose POC Whole Bld Glucose 344 H 244 H D Lactate Calcium Magnesium Total Bilirubin AST ALT Alkaline Phosphatase Troponin I Total Protein Albumin Globulin Albumin/Globulin Ratio Lipase Urine RBC None seen Urine WBC None seen Ur Squamous Epith Cells 5-10 /hpf H Urine Bacteria Moderate (10-30) H Hyaline Casts 0-1/lpf Ur Culture Indicated? Cult not indicated Vol Urine Centrifuged 10ml (spun) Nasal Screen MRSA (PCR) Ketones 06/12/25 06/12/25 06/12/25 22:56 23:40 23:59 WBC RBC Hgb Hct MCV MCH MCHC RDW Plt Count Neut % (Auto) Lymph % (Auto) [place] % (Auto) Eos % (Auto) Baso % (Auto) Neut # (Auto) Lymph # (Auto) [place] # (Auto) Eos # (Auto) Baso # (Auto) VBG pH VBG pCO2 VBG pO2 VBG HCO3 VBG Total CO2 VBG O2 Saturation VBG Base Excess Sodium 132 L Potassium 4.0 Chloride 99 Carbon Dioxide 16 L BUN 15 Creatinine 0.72 Estimated GFR > 60 BUN/Creatinine Ratio 20.8 Glucose 228 H D POC Whole Bld Glucose 208 H Lactate Calcium 8.4 Magnesium Total Bilirubin AST ALT Alkaline Phosphatase Troponin I Total Protein Albumin Globulin Albumin/Globulin Ratio Lipase Urine RBC Urine WBC Ur Squamous Epith Cells Urine Bacteria Hyaline Casts Ur Culture Indicated? Vol Urine Centrifuged Nasal Screen MRSA (PCR) Not detected Ketones 06/13/25 06/13/25 06/13/25 01:05 02:02 03:10 WBC 7.5 RBC 4.37 Hgb 12.8 Hct 37.2 MCV 85.0 MCH 29.3 MCHC 34.4 RDW 12.7 Plt Count 256 Neut % (Auto) 74.8 Lymph % (Auto) 17.0 L [place] % (Auto) 7.3 Eos % (Auto) 0.1 L Baso % (Auto) 0.8 Neut # (Auto) 5600 Lymph # (Auto) 1300 [place] # (Auto) 500 Eos # (Auto) 0 Baso # (Auto) 100 VBG pH VBG pCO2 VBG pO2 VBG HCO3 VBG Total CO2 VBG O2 Saturation VBG Base Excess Sodium 131 L Potassium 4.0 Chloride 102 Carbon Dioxide 20 L BUN 13 Creatinine 0.57 Estimated GFR > 60 BUN/Creatinine Ratio 22.8 H Glucose 137 H POC Whole Bld Glucose 167 H 152 H Lactate 1.4 Calcium 8.2 L Magnesium 1.8 Total Bilirubin AST ALT Alkaline Phosphatase Troponin I 0.016 Total Protein Albumin Globulin Albumin/Globulin Ratio Lipase Urine RBC Urine WBC Ur Squamous Epith Cells Urine Bacteria Hyaline Casts Ur Culture Indicated? Vol Urine Centrifuged Nasal Screen MRSA (PCR) Ketones 06/13/25 06/13/25 06/13/25 03:23 03:25 04:13 WBC RBC Hgb Hct MCV MCH MCHC RDW Plt Count Neut % (Auto) Lymph % (Auto) [place] % (Auto) Eos % (Auto) Baso % (Auto) Neut # (Auto) Lymph # (Auto) [place] # (Auto) Eos # (Auto) Baso # (Auto) VBG pH 7.43 VBG pCO2 34.2 L VBG pO2 92 H VBG HCO3 23 L VBG Total CO2 21 L VBG O2 Saturation 97 H VBG Base Excess -1.3 L Sodium Potassium Chloride Carbon Dioxide BUN Creatinine Estimated GFR BUN/Creatinine Ratio Glucose POC Whole Bld Glucose 134 H 139 H Lactate Calcium Magnesium Total Bilirubin AST ALT Alkaline Phosphatase Troponin I Total Protein Albumin Globulin Albumin/Globulin Ratio Lipase Urine RBC Urine WBC Ur Squamous Epith Cells Urine Bacteria Hyaline Casts Ur Culture Indicated? Vol Urine Centrifuged Nasal Screen MRSA (PCR) Ketones 06/13/25 06/13/25 06/13/25 05:04 06:08 06:58 WBC RBC Hgb Hct MCV MCH MCHC RDW Plt Count Neut % (Auto) Lymph % (Auto) [place] % (Auto) Eos % (Auto) Baso % (Auto) Neut # (Auto) Lymph # (Auto) [place] # (Auto) Eos # (Auto) Baso # (Auto) VBG pH VBG pCO2 VBG pO2 VBG HCO3 VBG Total CO2 VBG O2 Saturation VBG Base Excess Sodium Potassium Chloride Carbon Dioxide BUN Creatinine Estimated GFR BUN/Creatinine Ratio Glucose POC Whole Bld Glucose 137 H 148 H 145 H Lactate Calcium Magnesium Total Bilirubin AST ALT Alkaline Phosphatase Troponin I Total Protein Albumin Globulin Albumin/Globulin Ratio Lipase Urine RBC Urine WBC Ur Squamous Epith Cells Urine Bacteria Hyaline Casts Ur Culture Indicated? Vol Urine Centrifuged Nasal Screen MRSA (PCR) Ketones 06/13/25 06/13/25 06/13/25 07:25 07:40 08:02 WBC RBC Hgb Hct MCV MCH MCHC RDW Plt Count Neut % (Auto) Lymph % (Auto) [place] % (Auto) Eos % (Auto) Baso % (Auto) Neut # (Auto) Lymph # (Auto) [place] # (Auto) Eos # (Auto) Baso # (Auto) VBG pH VBG pCO2 VBG pO2 VBG HCO3 VBG Total CO2 VBG O2 Saturation VBG Base Excess Sodium 129 L Potassium 4.0 Chloride 102 Carbon Dioxide 20 L BUN 11 Creatinine 0.57 Estimated GFR > 60 BUN/Creatinine Ratio 19.3 Glucose 145 H POC Whole Bld Glucose 150 H 129 H Lactate Calcium 8.1 L Magnesium Total Bilirubin AST ALT Alkaline Phosphatase Troponin I Total Protein Albumin Globulin Albumin/Globulin Ratio Lipase Urine RBC Urine WBC Ur Squamous Epith Cells Urine Bacteria Hyaline Casts Ur Culture Indicated? Vol Urine Centrifuged Nasal Screen MRSA (PCR) Ketones Assessment & Plan Time-Based Coding :: 35 min spent with patient and on the chart (including review of chart, obtaining history, exam, reviewing outside data, placing orders, documenting exam and treatment plan, and counseling patient) on 06/13. Quality VTE Deep Vein Thrombosis/Pulmonary Embolism Present on Admission: No MIPS - Admit I confirm the patient?s Advance Care Plan is present, Code status is documented, Surrogate decision maker is in patient?s record [If Yes, STOP here]: Yes MIPS - Meds 'Current medications' to include all prescriptions, [id number] products, herbals, cannabis/cannabidiol products, and vitamin/mineral/dietary (nutritional) supplements. I have utilized all available resources to obtain, update, or review the patient?s current medications. [If Yes, STOP here]: Yes
[2025-06-13] MEDS: INSULIN GLARGINE 100 UNIT/ML 3ML PEN 20 UNIT SUBCUT (08:23)
[2025-06-13] MEDS: PANTOPRAZOLE 40 MG VIAL IV (08:24)
--- NOTE | 2025-06-13 08:53 | CM.DANOTE ---
Initial DCP Assessment Note. Review EMR and PT Interview. Met with patient at bedside to discuss discharge needs.PT is alert x 4 sitting up in bed. No acute distress. Independent. Payor:??BCBS Out of [facility] PCP: Summary & Plan:?49 y/o female arrived to ED via POV c/o N&V with high blood sugars. ADmittied INPT. Dx. DKA. Plan: Correct blood sugar. Discharge home when stable. Discharge Planning/Care Management CM Discharge Assessment Start: 06/12/25 23:07 Freq: Status: Active Protocol: Document 06/13/25 08:51 SM (Rec: 06/13/25 08:52 [id number]) Discharge Planning Assessment Assigned Discharge Geetha Stokes RN CM Machine Finisher Provider Dr. Marley Insurance BCBS Advance Directives? No History Provided By Patient Prior Living House Arrangements Household Members spouse,children Type of Drives own vehicle transporation used prior to admit Independent with ADL Yes 's Is patient alert and Yes oriented? Barriers to No Discharge Discharge Plan Home Referrals Initiated None needed Review Status In Process Please Provide Date 06/13/25 Initial DC Assessment Was Performed Next Review Type Continued Stay Review
--- NOTE | 2025-06-13 09:04 | PC.NURSE ---
Dayshift note: Anion gap calculated this am gap is 7.0 BG 145, Dr Lopez notified, new orders placed to discontinue Insulin gtt, bridged with Lantus as order, diet placed, no further needs at this time, call light within reach, care ongoing
[2025-06-13 09:50] LABS: Hemoglobin A1C% w Est Avg Glu 6.7 % (4.0-6.0)
--- NOTE | 2025-06-13 10:19 | DIET.CONS ---
Dietary Consultation Note Admission Date: 06/12/2025 22:50 Assessment: 49 y F admitted for DKA. Dietitian consulted for DKA. Pt on medtronic pump. Per RN, hospitalist chepe pt to restart her pump this morning. Pt got glargine at 0830 this morning. Met with pt at bedside, informed pt she could reconnect to pump, pt was eager to reconnect. Discussed setting temp basal mode/smartguard in light of glargine received. Pt aware and familiar with using pump, turned smartguard off, temp basal to zero. Reports didn't eat enough breakfast to bolus breakfast, but will do correction dose. Wearing CGM. Reports no issues with pump, insulin, CGM supplies. No further questions/concerns. Ht: 182.88 cm Wt: 95.254 kg BMI: 28.5 UBW: - Last BM: 06/12/25 (06/12/25 23:07) MNA: 14 Tim[place]o Score: 22 Diet: 06/12/25 22:52 NPO Diet Diet Modifications: NPO Type: NPO except for Ice Chips 06/13/25 Lunch Carbohydrate Consistent Diet Diet Modifications: Carbohydrate level: Medium (3 CHO) Reflex DM orders: No Food Texture: Level 7 - Regular Liquid Consistency: Level 0 - Thin Labs: RBC 4.37 X10^6/uL (4.0-5.2) 06/13/25 03:10 Hgb 12.8 g/dL (12.0-16.0) 06/13/25 03:10 Hct 37.2 % (36-46) 06/13/25 03:10 Creatinine 0.57 mg/dL (0.52-1.04) 06/13/25 07:25 Hemoglobin A1c 6.7 % (4.0-6.0) H 06/13/25 07:25 Lactate 1.4 mmol/L (0.7-2.1) 06/13/25 03:10 Nutrition Diagnosis: Altered nutrition related lab values (BG) r/t endocrine dysfunction aeb N/V with rising BG (BG 432 in ED) Interventions: Per hospitalist, pt can be started back on her insulin pump Glargine given at 0830 per EMR; pt aware and set temp basal dose 0 for 24 hours and will do correction dose for her latest BG of 207; Familiar and knowledgeable of how to use her pump. Monitoring/Evaluations: pt to d/c this monring Electronically Signed by: Marta Mendez 06/13/25 10:19 Clinical Dietitian [address] [id number]
--- NOTE | 2025-06-13 10:35 | PM.DS.1 ---
History of Present Illness History of Present Illness Chief complaint: diabetic problem Narrative: From night doctor: The pt is a IDDM type I who normally has a [employer] Insulin pump who started having nausea for the past 48 hours but started having vomiting around noon today multiple times. She was unable to keep any food or liquids down so she came t our ER tonight. 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 and had an appointment last week for a routine check. Thept does not know why she has went into DKA, but states her son also has been having N/V for the past several days- thus she thinks she has a viral GI bug. The pt denies any CP, AYALA, fevers, chills, but does c/o leg cramps. S: She was feeling much better, her nausea has essentially resolved and she was able to eat. Her sugars have improved and gap did close. She has not on DKA previously. There was no evidence pump function. She did have nausea vomiting and diarrhea blood with the as well as on infection or food poisoning. ROS: All else reviewed and otherwise unremarkable except as noted in the history and physical. O: VSS NAD, alert and oriented, fluent speech, calm. Normocephalic skull, EOMI, anicteric sclera, symmetric pupils. Oropharynx unremarkable, no droop. Neck supple, midline trachea, no adenopathy. Lungs clear, normal rate and effort. Heart regular, no murmur gallop or rub. Abdomen is soft, non distended and non tender. Extremities are free of edema. Skin is free of rash or lesions. Joints are not swollen or deformed. Judgment appears to be normal. IMAGING: ABD US: Unremarkable exam. A/P: 1. DKA, improved. 2. DM 1, active. 3. Hypovolemic hyponatremia. Improved with fluids. Hospital course: She was able to transition back to pump in the morning of the . She was able to eat and had no further difficulties. She had a mild rebound of glucose to 213 but was able to manage this with her pump. She was eager to return home and felt to be stable for discharge. She will be given Zofran as needed for any residual nausea. [N], the patient has documentation of a left ventricle ejection fracture less than or equal to 40%, or moderately or severely reduced left ventricle systolic function. [N], the patient has a history of heart transplant or left ventricular assist device (LVAD). [N], the patient was prescribed an JYOTHI inhibitor at discharge or is already being taken. The patient was not prescribed an JYOTHI-inhibitor because of the following exception: NA [N], the patient was prescribed Metoprolol succinate, bisoprolol, or carvedilol at discharge. The patient was not prescribed Metoprolol succinate, bisoprolol, or carvedilol at discharge because of the following exception: NA Discharge Providers Provider Date of admission: 06/12/25 22:50 Discharge Date: 06/13/25 Primary care physician: BERNARDA Lyon Consults: 06/12/25 22:55 Consult to Dietitian, Adult Routine Comment: Reason For Exam: dka 06/12/25 22:57 Consult to Dietitian, Adult Routine Comment: Reason For Exam: Once DKA resolved 06/13/25 09:36 Consult to Dietitian, Adult Routine Comment: Reason For Exam: DKA, insulin pump Discharge provider: Michael Lopez MD Summary Status at Discharge Cognitive/behavioral status at discharge: oriented Functional status at discharge: independent ambulation Overall status at discharge: patient is back to baseline Time Spent with Patient Time spent: Greater than 30 minutes Exam Vital Signs (past 8 hours): - 06/13/25 03:00 06/13/25 04:00 06/13/25 05:00 Pulse Rate 88 86 89 Respiratory Rate 18 17 18 Blood Pressure 118/64 133/62 126/63 Pulse Oximetry 98 97 96 Oxygen Delivery Method Oxygen Flow Rate 0 0 0 06/13/25 06:00 06/13/25 07:00 06/13/25 08:00 Pulse Rate 85 84 Respiratory Rate 27 H 20 Blood Pressure 120/58 L 141/68 H Pulse Oximetry 98 97 Oxygen Delivery Method Room Air Oxygen Flow Rate 0 0 Oxygen Delivery Method Room Air Oxygen Flow Rate 0 Narrative Exam Narrative: Discharge exam: NAD, alert and oriented. Fluent speech. Lungs are clear, normal rate and effort. Heart is regular, no murmur gallop or rub. Abdomen is soft, non distended. Extremities are free of edema. Objective ECG Impression: Intervals [place] Rate: 113 P: 44 MO: 140 QRS: -9 QRSD: 84 T: 29 QT: 326 QTc: 447 Interpretive Statements Sinus tachycardia Labs 06/13/25 03:10 06/13/25 07:25 Labs: Laboratory Results - last 24 hr 06/12/25 06/12/25 06/12/25 20:30 20:45 20:52 WBC 10.9 RBC 5.21 H Hgb 15.0 Hct 45.2 MCV 86.7 MCH 28.8 MCHC 33.2 RDW 13.1 Plt Count 296 Neut % (Auto) 92.0 H Lymph % (Auto) 5.2 L [place] % (Auto) 2.4 L Eos % (Auto) 0.0 L Baso % (Auto) 0.4 Neut # (Auto) 24630 H Lymph # (Auto) 600 L [place] # (Auto) 300 Eos # (Auto) 0 Baso # (Auto) 0 VBG pH 7.28 L VBG pCO2 32.6 L VBG pO2 41 VBG HCO3 15 L VBG Total CO2 15 L VBG O2 Saturation 70 VBG Base Excess -10.2 L Sodium 132 L Potassium 4.5 Chloride 95 L Carbon Dioxide 12 L BUN 16 Creatinine 0.85 Estimated GFR > 60 BUN/Creatinine Ratio 18.8 Glucose 393 H POC Whole Bld Glucose 432 H Hemoglobin A1c Lactate Calcium 9.0 Magnesium Total Bilirubin 1.1 AST 40 H ALT 41 H Alkaline Phosphatase 105 Troponin I Total Protein 8.0 Albumin 4.9 Globulin 3.1 Albumin/Globulin Ratio 1.6 Lipase 27 Urine RBC Urine WBC Ur Squamous Epith Cells Urine Bacteria Hyaline Casts Ur Culture Indicated? Vol Urine Centrifuged Nasal Screen MRSA (PCR) Ketones 6.58 H 06/12/25 06/12/25 06/12/25 21:43 22:00 22:37 WBC RBC Hgb Hct MCV MCH MCHC RDW Plt Count Neut % (Auto) Lymph % (Auto) [place] % (Auto) Eos % (Auto) Baso % (Auto) Neut # (Auto) Lymph # (Auto) [place] # (Auto) Eos # (Auto) Baso # (Auto) VBG pH VBG pCO2 VBG pO2 VBG HCO3 VBG Total CO2 VBG O2 Saturation VBG Base Excess Sodium Potassium Chloride Carbon Dioxide BUN Creatinine Estimated GFR BUN/Creatinine Ratio Glucose POC Whole Bld Glucose 344 H 244 H D Hemoglobin A1c Lactate Calcium Magnesium Total Bilirubin AST ALT Alkaline Phosphatase Troponin I Total Protein Albumin Globulin Albumin/Globulin Ratio Lipase Urine RBC None seen Urine WBC None seen Ur Squamous Epith Cells 5-10 /hpf H Urine Bacteria Moderate (10-30) H Hyaline Casts 0-1/lpf Ur Culture Indicated? Cult not indicated Vol Urine Centrifuged 10ml (spun) Nasal Screen MRSA (PCR) Ketones 06/12/25 06/12/25 06/12/25 22:56 23:40 23:59 WBC RBC Hgb Hct MCV MCH MCHC RDW Plt Count Neut % (Auto) Lymph % (Auto) [place] % (Auto) Eos % (Auto) Baso % (Auto) Neut # (Auto) Lymph # (Auto) [place] # (Auto) Eos # (Auto) Baso # (Auto) VBG pH VBG pCO2 VBG pO2 VBG HCO3 VBG Total CO2 VBG O2 Saturation VBG Base Excess Sodium 132 L Potassium 4.0 Chloride 99 Carbon Dioxide 16 L BUN 15 Creatinine 0.72 Estimated GFR > 60 BUN/Creatinine Ratio 20.8 Glucose 228 H D POC Whole Bld Glucose 208 H Hemoglobin A1c Lactate Calcium 8.4 Magnesium Total Bilirubin AST ALT Alkaline Phosphatase Troponin I Total Protein Albumin Globulin Albumin/Globulin Ratio Lipase Urine RBC Urine WBC Ur Squamous Epith Cells Urine Bacteria Hyaline Casts Ur Culture Indicated? Vol Urine Centrifuged Nasal Screen MRSA (PCR) Not detected Ketones 06/13/25 06/13/25 06/13/25 01:05 02:02 03:10 WBC 7.5 RBC 4.37 Hgb 12.8 Hct 37.2 MCV 85.0 MCH 29.3 MCHC 34.4 RDW 12.7 Plt Count 256 Neut % (Auto) 74.8 Lymph % (Auto) 17.0 L [place] % (Auto) 7.3 Eos % (Auto) 0.1 L Baso % (Auto) 0.8 Neut # (Auto) 5600 Lymph # (Auto) 1300 [place] # (Auto) 500 Eos # (Auto) 0 Baso # (Auto) 100 VBG pH VBG pCO2 VBG pO2 VBG HCO3 VBG Total CO2 VBG O2 Saturation VBG Base Excess Sodium 131 L Potassium 4.0 Chloride 102 Carbon Dioxide 20 L BUN 13 Creatinine 0.57 Estimated GFR > 60 BUN/Creatinine Ratio 22.8 H Glucose 137 H POC Whole Bld Glucose 167 H 152 H Hemoglobin A1c Lactate 1.4 Calcium 8.2 L Magnesium 1.8 Total Bilirubin AST ALT Alkaline Phosphatase Troponin I 0.016 Total Protein Albumin Globulin Albumin/Globulin Ratio Lipase Urine RBC Urine WBC Ur Squamous Epith Cells Urine Bacteria Hyaline Casts Ur Culture Indicated? Vol Urine Centrifuged Nasal Screen MRSA (PCR) Ketones 06/13/25 06/13/25 06/13/25 03:23 03:25 04:13 WBC RBC Hgb Hct MCV MCH MCHC RDW Plt Count Neut % (Auto) Lymph % (Auto) [place] % (Auto) Eos % (Auto) Baso % (Auto) Neut # (Auto) Lymph # (Auto) [place] # (Auto) Eos # (Auto) Baso # (Auto) VBG pH 7.43 VBG pCO2 34.2 L VBG pO2 92 H VBG HCO3 23 L VBG Total CO2 21 L VBG O2 Saturation 97 H VBG Base Excess -1.3 L Sodium Potassium Chloride Carbon Dioxide BUN Creatinine Estimated GFR BUN/Creatinine Ratio Glucose POC Whole Bld Glucose 134 H 139 H Hemoglobin A1c Lactate Calcium Magnesium Total Bilirubin AST ALT Alkaline Phosphatase Troponin I Total Protein Albumin Globulin Albumin/Globulin Ratio Lipase Urine RBC Urine WBC Ur Squamous Epith Cells Urine Bacteria Hyaline Casts Ur Culture Indicated? Vol Urine Centrifuged Nasal Screen MRSA (PCR) Ketones 06/13/25 06/13/25 06/13/25 05:04 06:08 06:58 WBC RBC Hgb Hct MCV MCH MCHC RDW Plt Count Neut % (Auto) Lymph % (Auto) [place] % (Auto) Eos % (Auto) Baso % (Auto) Neut # (Auto) Lymph # (Auto) [place] # (Auto) Eos # (Auto) Baso # (Auto) VBG pH VBG pCO2 VBG pO2 VBG HCO3 VBG Total CO2 VBG O2 Saturation VBG Base Excess Sodium Potassium Chloride Carbon Dioxide BUN Creatinine Estimated GFR BUN/Creatinine Ratio Glucose POC Whole Bld Glucose 137 H 148 H 145 H Hemoglobin A1c Lactate Calcium Magnesium Total Bilirubin AST ALT Alkaline Phosphatase Troponin I Total Protein Albumin Globulin Albumin/Globulin Ratio Lipase Urine RBC Urine WBC Ur Squamous Epith Cells Urine Bacteria Hyaline Casts Ur Culture Indicated? Vol Urine Centrifuged Nasal Screen MRSA (PCR) Ketones 06/13/25 06/13/25 06/13/25 07:25 07:40 08:02 WBC RBC Hgb Hct MCV MCH MCHC RDW Plt Count Neut % (Auto) Lymph % (Auto) [place] % (Auto) Eos % (Auto) Baso % (Auto) Neut # (Auto) Lymph # (Auto) [place] # (Auto) Eos # (Auto) Baso # (Auto) VBG pH VBG pCO2 VBG pO2 VBG HCO3 VBG Total CO2 VBG O2 Saturation VBG Base Excess Sodium 129 L Potassium 4.0 Chloride 102 Carbon Dioxide 20 L BUN 11 Creatinine 0.57 Estimated GFR > 60 BUN/Creatinine Ratio 19.3 Glucose 145 H POC Whole Bld Glucose 150 H 129 H Hemoglobin A1c 6.7 H Lactate Calcium 8.1 L Magnesium Total Bilirubin AST ALT Alkaline Phosphatase Troponin I Total Protein Albumin Globulin Albumin/Globulin Ratio Lipase Urine RBC Urine WBC Ur Squamous Epith Cells Urine Bacteria Hyaline Casts Ur Culture Indicated? Vol Urine Centrifuged Nasal Screen MRSA (PCR) Ketones PFSH Social History household members: spouse and children Smoking Status: Former smoker alcohol intake: current Discharge Assessment & Plan Assessment and Plan Assessment: See above. Plan of Treatment: Discharge home, had resumed pump prior to discharge. Discharge Plan Discharge Plan Patient Disposition: Home Provider Discharge Comment: Stable for discharge home, we will manage sugars on pump. Zofran we will be sent to pharmacy for nausea. Discharge orders & Medications Prescriptions: New ondansetron 4 mg tablet,disintegrating 4 mg PO Q8H PRN (Reason: nausea and vomiting) 4 Days Qty: 14 0RF Continued INSULIN GLARGINE 10ML (LANTUS) 25 units SQ Q DAY Qty: 0 Insulin Human Regular (Humulin R / Novolin R) See Rx Instructions .ROUTE .COMPLEX Qty: 0 Rx Instructions: insulin pump LISINOPRIL (Zestril / Prinivil) 10 mg PO Q DAY Qty: 0 Follow up/Referrals: Talia Marley ARNP [Primary Care Provider, Family Practice] Diet/Activity/Treatments Diet: Carb-consistent/Diabetic Visit Report/Discharge Packet Instructions: DI for Diabetic Ketoacidosis Stand Alone Forms: Patient Portal/API Discharge Data Primary Care Provider: Talia Marley Quality VTE Deep Vein Thrombosis/Pulmonary Embolism Present on Admission: No
== END 2025-06-13 11:40 | disposition home or self-care (01) | DRG 638 ==
LOC: ED 21:47 → AC 22:51 → ICU 23:08
PROVIDERS: Admitting Provider Internal Medicine; Emergency Provider Emergency Medicine; PCP Registered Nurse; Referring Provider Emergency Medicine; Visit Provider Internal Medicine
DX: E10.10 Type 1 diabetes mellitus with ketoacidosis without coma (principal); E87.1 Hypo-osmolality and hyponatremia; Z87.891 Personal history of nicotine dependence; Z96.41 Presence of insulin pump (external) (internal)
CPT/HCPCS: 36415; 76705; 80048; 80053; 81003; 81015; 82009; 82805; 82962; 83036; 83605; 83690; 83735; 84484; 85025; 87086; 87797; 93005; 96361; 96365; 96366; 96375; 96376; 99284; 99291; J2405; J2470; J7030